=== PATIENT | female | born 1940 | race Caucasian/White ===

== ENCOUNTER → 2017-05-22 | Outpatient (CLI) | payer BC | LOC: FIMAGING 13:58 | PROVIDERS: ATTEND Internal Medicine | DX: Z12.31 Encounter for screening mammogram for malignant neoplasm of breast (principal) | CPT/HCPCS: G0202 ==

== ENCOUNTER → 2017-05-31 | Outpatient (CLI) | payer BC ==
[~2017-05-31] MED LIST: IOPAMIDOL (ISOVUE 370) 100 ML BTL IV ONE
== END ==
LOC: CIMAGING 14:07
PROVIDERS: ATTEND Internal Medicine
DX: R09.02 Hypoxemia (principal); R06.09 Other forms of dyspnea; I51.7 Cardiomegaly; R16.1 Splenomegaly, not elsewhere classified; J90 Pleural effusion, not elsewhere classified; Q79.0 Congenital diaphragmatic hernia
CPT/HCPCS: 71275-PO; Q9967

== ENCOUNTER → 2017-06-13 | Outpatient (CLI) | payer BC | LOC: FIMAGING 14:05 | PROVIDERS: ATTEND Internal Medicine | DX: I50.30 Unspecified diastolic (congestive) heart failure (principal); J90 Pleural effusion, not elsewhere classified; I11.0 Hypertensive heart disease with heart failure ==

== ENCOUNTER → 2017-06-21 | Outpatient (CLI) | payer BC | LOC: FIMAGING 09:33 | PROVIDERS: ATTEND Internal Medicine Cardiovascular Disease | DX: R60.0 Localized edema (principal); R06.02 Shortness of breath; I25.10 Atherosclerotic heart disease of native coronary artery without angina pectoris; E03.9 Hypothyroidism, unspecified; Z79.01 Long term (current) use of anticoagulants ==

== ENCOUNTER 2017-07-31 06:03 | Observation (INO) | payer BC ==
[2017-07-31] MEDS ORDERED: FAMOTIDINE 20 MG TAB PO ONE (06:09)
[2017-07-31] MEDS ORDERED: ASPIRIN EC 325 MG TAB PO ONE (06:09)
[2017-07-31] MEDS ORDERED: DIAZEPAM 5 MG TAB PO ONE (06:09)
[2017-07-31] MEDS ORDERED: NS 1,000 ML IV ONE (06:09)
[2017-07-31] MEDS ORDERED: diphenhydrAMINE 25 MG CAP PO ONE (06:09)
--- NOTE | 2017-07-31 06:34 | CPEKG ---
Heart Rate: 76 RR Interval: 789 QRSD Interval: 132 QT Interval: 404 QTC Interval: 455 QRS [place]: -2 T Wave [place]: 3 EKG Severity - ABNORMAL ECG - EKG Impression: ATRIAL FIBRILLATION, V-RATE 68-84 EKG Impression: RIGHT BUNDLE BRANCH BLOCK EKG Impression: COMPARED WITH 01/21/2014, ATRIAL FIBRILLATION NOW PRESENT Electronically Signed By: Fiona Teague 31-Jul-2017 08:44:52
[2017-07-31 06:58] LABS: % IMMATURE GRANULYOCYTES 0.6 % (0.0-1.1); ABSOLUTE IMMATURE GRANULOCYTES 0.04 10^3/uL (0.00-0.10); ADD DIFF? NO; ADD MORPH? NO; ADD SCAN? NO; ATYPICAL LYMPHOCYTE FLAG 10 (0-99); FRAGMENT RBC FLAG 40 (0-99); HEMATOCRIT 35.1 % (38.0-47.0); HEMOGLOBIN 11.6 g/dL (12.6-16.3); LEFT SHIFT FLG 0 (0-99); LIPEMIA HEMOLYSIS FLAG 80 (0-99); MEAN CELL HEMOGLOBIN 31.2 pg (27.9-34.1); MEAN CELL VOLUME 94.4 fL (81.5-99.8); MEAN PLATELET VOLUME 12.1 fL (8.7-11.7); PLATELET CLUMPS FLAG 0 (0-99); PLATELET COUNT 589 10^3/uL (150-400); RED BLOOD CELL COUNT 3.72 10^6/uL (4.18-5.33)
--- NOTE | 2017-07-31 06:58 | PDHPUP ---
History & Physical Update H&P update statement: This history and physical update is based on an assessment of the patient which was completed after admission or registration (within 24 hours), but prior to the surgery/procedure. H&P update: H&P reviewed & patient examined, no change in patient's condition since H&P completed
--- NOTE | 2017-07-31 06:58 | PDPROPOC ---
Sedation Plan of Care Sedation Plan of Care: vital signs stable, mental status noted, patient educated of risks, benefits, alternatives, patient can tolerate sedation ASA Classification: ASA 2 Planned drugs: fentanyl, midazolam Mallampati Score: Class 2 Mallampati Reference Image: Patient passed 3-3-2 rule?: Yes
[2017-07-31] MEDS ORDERED: LIDOCAINE 1% 300 MG/30 ML SDV ONE (07:02)
[2017-07-31] MEDS ORDERED: fentaNYL 100 MCG/2 ML INJ ONE (07:02)
[2017-07-31] MEDS ORDERED: MIDAZOLAM 2 MG/2 ML VIAL ONE (07:02)
[2017-07-31] MEDS ORDERED: IOPAMIDOL (ISOVUE-370) 150 ML BTL IV ONE (07:03)
[2017-07-31 07:09] LABS: INR 1.26 (0.83-1.16)
[2017-07-31 07:13] LABS: ANION GAP 10 mEq/L (8-16); CALCIUM 9.4 mg/dL (8.5-10.4); CARBON DIOXIDE 32 mEq/l (22-31); CHLORIDE 101 mEq/L (97-110); CHOLESTEROL 78 mg/dL (140-220); CHOLESTEROL/HDL RATIO 2.29 RATIO (1.00-4.44); CREATININE 0.8 mg/dL (0.6-1.0); GLOMERULAR FILTRATION RATE > 60; GLUCOSE 104 mg/dL (70-100); HIGH DENSITY LIPOPROTEIN 34 mg/dL (40-85); LDL/HDL RATIO 0.94 RATIO (1.00-3.22); LOW DENSITY LIPOPROTEIN 32 mg/dL (80-100); MAGNESIUM 1.8 mg/dL (1.6-2.3); NON-HIGH DENSITY LIPOPROTEIN 44 mg/dL (90-129); POTASSIUM 4.5 mEq/L (3.5-5.2); SODIUM 143 mEq/L (134-144); TRIGLYCERIDE 61 mg/dL (35-135); VERY LOW DENSITY LIPOPROTEINS 12 mg/dL (8-25)
[2017-07-31] MEDS ORDERED: CLOPIDOGREL BISULFATE 75 MG TAB ONE (07:45)
[2017-07-31] MEDS ORDERED: HEPARIN 10,000 UNIT/10 ML MDV ONE ×2 (07:49→08:25)
[2017-07-31] MEDS ORDERED: ONDANSETRON 4 MG/2 ML VIAL ONE (08:11)
[2017-07-31] MEDS ORDERED: LORazepam 2 MG/ML INJ IVP PRN (08:20)
[2017-07-31] MEDS ORDERED: ATROPINE SULFATE 1 MG/10 ML SYR IVP PRN (08:20)
[2017-07-31] MEDS ORDERED: OXYCODONE/APAP 5/325 TAB PO PRN (08:20)
[2017-07-31] MEDS ORDERED: TEMAZEPAM 15 MG CAP PO PRN (08:20)
[2017-07-31] MEDS ORDERED: ONDANSETRON 4 MG/2 ML VIAL IVP PRN (08:20)
[2017-07-31] MEDS ORDERED: HYDROCODONE/APAP 5/325 TAB PO PRN (08:20)
--- NOTE | 2017-07-31 08:56 | CPEKG ---
Heart Rate: 72 RR Interval: 833 QRSD Interval: 132 QT Interval: 432 QTC Interval: 473 QRS [place]: -17 T Wave [place]: 0 EKG Severity - ABNORMAL ECG - EKG Impression: ATRIAL FIBRILLATION, V-RATE 63-85 EKG Impression: RIGHT BUNDLE BRANCH BLOCK EKG Impression: NO SIGNIFICANT CHANGE COMPARED WITH 07/31/2017 AT 6:32 A.M. Electronically Signed By: Fiona Teague 31-Jul-2017 17:20:06
--- NOTE | 2017-07-31 09:53 | CPIP ---
[f rep st] INVASIVE CARDIAC PROCEDURE DATE OF PROCEDURE: 07/31/2017 INDICATIONS FOR PROCEDURE: Positive stress test. Shortness of breath. PROCEDURE: 1. Nonselective right groin sheathogram. 2. Seven-Maldivian sheath right common femoral vein. 3. [place] catheter placement. 4. Bilateral selective coronary angiography. 5. Left heart catheterization. 6. Left ventriculogram. 7. Percutaneous coronary intervention of mid right posterior descending artery utilizing Synergy 2.5 x 20 mm drug-eluting stent. HISTORY: Briefly, this is a 77-year-old female with history of coronary artery disease, worsening sh ortness of breath who is now on oxygen therapy. The patient also had a positive stress test as an ou tpatient. Given these findings, patient consented for right and left heart catheterization. After informed consent, patient brought to [facility] where the right groin was prepped and draped in sterile fashion. Using local lidocaine, a short 6-Maldivian sheath was placed in the rig ht common femoral artery. A 7-Maldivian sheath placed in the right common femoral vein. Through the 7- Maldivian sheath, a right heart catheter was advanced. RA pressure was measured to be 14/16, RV pressur e 55/6 with the end of 13. PA pressure was 63/30 with a mean of 50. Wedge pressure was 24 with a V- wave of 32. The cardiac output was measured to be 4.3 by Nathaniel with a cardiac index of 2.25. AO sat was 93%. PA sat was 68%. [place] catheter was then removed and a JL4 catheter was then advanced t o the right coronary artery. Images of the right coronary artery revealed normal left main. Normal left circumflex artery giving off a marginal 1 artery and terminating into an AV groove circ. There was a ramus intermedius which was healthy and free of disease. The LAD was a long vessel which wrapp ed around the apex. The LAD gave off a small to medium diagonal artery which was healthy and free of disease. After these images were obtained, the JL4 catheter was removed. A JR4 catheter was advanc ed in the right coronary artery. Images of the right coronary artery revealed normal os prox mid RCA . The RPDA was healthy and free of disease. The RPLS was extensively stented from its mid portion t o the distal aspect. In the stented region there has 2 focal areas of high-grade in-stent restenosis . After these images had been obtained, the JR4 catheter was removed. The pigtail catheter was adva nced to the left ventricle. LVEDP is 15 mmHg. Left ventriculogram obtained in the SALAZAR projection sh owed an EF of 55% with no wall motion abnormalities. There was no pull-back gradient between the LV and aorta. Pigtail catheter was removed over 0.035 wire. INTERVENTIONAL REPORT: At this time, the patient was given 600 of Plavix p.o. and given 7000 heparin IV. A JR4 catheter was advanced to the right coronary artery. A Choice PT wire was placed down the RPLS. Predilatation commenced with a 2.0 x 15 mm compliant balloon at 14 atmospheres. After perfor med, angiographic exam showed improved patency of the stented area. We decided to proceed with stent ing of this vessel with a Synergy 2.5 x 20 mm stent. This was deployed successfully at 16 atmosphere s. After deployment, angiographic exam showed excellent patency of the stented regions with no evide nce of dissection or perforation with ELVIS-3 flow through the vessel. The wire was removed. The nell de catheter were removed over a 0.035 wire. The right groin was sutured in place. Patient tolerated procedure well with no complications. IMPRESSION: 1. Successful percutaneous coronary intervention of high-grade in-stent restenosis of the RPLS with Synergy 2.5 x 20 mm drug-eluting stent. 2. Widely patent left coronary artery circulation. 3. Normal ejection fraction. 4. Moderately severe pulmonary hypertension. PLAN: The patient will have her sheath discontinued when the AC is less than 180. She will be admit yaa overnight. If clinically stable, will be discharged within 24 hours. /[id number]/MODL
[2017-07-31] MEDS: CLOPIDOGREL BISULFATE 75 MG TAB PO SCH (13:21)
[2017-07-31] MEDS: ATORVASTATIN CALCIUM 20 MG TAB PO SCH (15:06)
[2017-07-31] MEDS: APIXABAN 5 MG TAB PO SCH ×2 (15:07→20:16)
[2017-07-31] MEDS: METOPROLOL TARTRATE 50 MG TAB PO SCH ×2 (15:07→20:16)
[2017-07-31] MEDS: RAMIPRIL 5 MG CAP PO SCH (15:07)
[2017-07-31] MEDS: NITROGLYCERIN 0.4 MG BTL SL PRN ×2 (16:12→16:25)
--- NOTE | 2017-07-31 16:48 | CPEKG ---
Heart Rate: 78 RR Interval: 769 QRSD Interval: 124 QT Interval: 404 QTC Interval: 461 QRS [place]: -41 T Wave [place]: -20 EKG Severity - ABNORMAL ECG - EKG Impression: ATRIAL FIBRILLATION EKG Impression: RIGHT BUNDLE BRANCH BLOCK EKG Impression: COMPARED WITH 07/31/2017 AT 8:54 A.M., NO SIGNIFICANT CHANGE Electronically Signed By: Fiona Teague 31-Jul-2017 17:19:39
--- NOTE | 2017-07-31 17:30 | PDCARPN ---
Cardiology Progress Note Chief Complaint: chest tightness Assessment/Plan: Assessment: 1. Episode of chest pain post PCI to post lateral branch of RCA today -No wall motion changes or pericardial effusion on stat echo -pt is now pain free -No indication to return to laboratory assistant 2. AFib Plan: -continue current medications -ECG in AM -Pt instructed to notify nurse with new onset of pain 07/31/17 17:34 Subjective: Avani is a pleasant 77 year old female who was admitted electively this am for LHC after an abnormal stress test with a known hx of CAD with PCI to the Posterior Lateral branch off of dominant RCA. LHC demonstrated widely patent Left coronary arteries with no evidence of cad per my review. Pt had significant narrowing of distal posterior lateral branch and underwent successful PCI with 2.5 x 20 mm MERLINE. Tolerated the procedure well. I was asked to see her at approx 16:45 secondary to chest tightness. Pt states that pain began this afternoon shortly after eating. This was approximately 15: 00. She described 8/10 chest tightness. She did have some mild nausea. No other symptoms. She did not have any relief wth 2 NTG. ECG demonstrated sinus with RBBB. There is TWI in III and AVF. There was TWI in III pre op, new TWI in III. Post ECG her pain was down to 4/10. Stat echo was done with no evidence of wall motion abnormality or effusion. By the time the echo was completed she was pain free. Vital signs are stable with BP of 110/75 and HR 88. 96% on 2L Groin site is stable without hematoma or ecchymosis. She remains pain free and appears comfortable at the time of this note. Reviewed/Discussed With: family, multidisciplinary team Objective: Vital Signs (8 Hrs) Temp Pulse Resp BP Pulse Ox 07/31/17 16:24 85 110/75 07/31/17 15:10 36.4 C 07/31/17 15:09 79 20 122/78 H 96 07/31/17 14:20 63 20 103/55 L 95 07/31/17 13:40 36.3 C 63 16 118/79 96 07/31/17 13:06 109/45 L 99 07/31/17 13:05 99 07/31/17 13:03 117/55 L 100 07/31/17 13:01 112/50 L 97 12/18/17 13:00 98 17 12:58 114/57 L 94 07/31/17 12:56 97/73 L 98 17 12:55 99 17 12:53 113/71 99 17 12:51 103/57 L 98 17 12:50 96 17 12:48 106/50 L 95 17 12:46 100/46 L 97 17 12:45 99 17 12:43 104/52 L 98 17 12:41 101/68 100 17 12:40 97 17 12:39 102/69 97 07/31/17 12:36 113/57 L 98 07/31/17 12:35 98 07/31/17 12:34 105/57 L 99 07/31/17 12:31 110/53 L 98 07/31/17 12:30 92 07/31/17 12:29 106/58 L 95 07/31/17 12:26 123/51 H 97 17 12:25 99 17 12:23 106/54 L 100 07/31/17 12:21 96/55 L 95 07/31/17 12:20 98 17 12:19 104/64 98 07/31/17 12:16 111/66 96 17 12:15 96 07/31/17 12:14 118/63 97 07/31/17 12:11 116/58 L 99 17 12:10 100 17 12:09 98/48 L 94 17 12:06 115/68 96 07/31/17 12:05 88 L 17 12:03 111/71 97 18/17 12:01 112/66 97 18/17 12:00 98 18/17 11:59 128/59 H 98 18/17 11:56 114/79 99 18/17 11:55 98 18/17 11:53 117/68 100 18/17 11:50 98 18/17 11:47 123/65 H 99 18/17 11:45 99 12/18/17 11:40 97 12/18/17 11:35 89 L Intake/Output (24 Hrs) 07/30/17 07/31/17 08/01/17 05:59 05:59 05:59 Other: Weight 95.254 kg Result Diagrams: 07/31/17 06:30 07/31/17 06:30 - Physical Exam Constitutional: WDWN, healthy appearing, no apparent distress, obese Ears, Nose, Mouth, Throat: moist mucous membranes Cardiovascular: no murmurs, no rubs, no gallops, irregularly irregular Peripheral Pulses: 1+: dorsalis-pedis (R), dorsalis-pedis (L) Respiratory: other (mild exp wheeze at upper lung hutchins ) Gastrointestinal: normoactive bowel sounds Skin: no rashes Musculoskeletal: no muscular tenderness Neurologic: AAOx3, CN II-XII grossly intact Psychiatric: cooperative, interactive, following commands ICD10 Worksheet Patient Problems: Problems Problem Status Onset Arthritis of knee Active Appendicitis Acute
[2017-07-31] MEDS ORDERED: ACETAMINOPHEN 325 MG TAB PO PRN (17:59)
[2017-08-01 04:59] LABS: % IMMATURE GRANULYOCYTES 0.8 % (0.0-1.1); ABSOLUTE IMMATURE GRANULOCYTES 0.07 10^3/uL (0.00-0.10); ADD DIFF? NO; ADD MORPH? NO; ADD SCAN? NO; ATYPICAL LYMPHOCYTE FLAG 10 (0-99); FRAGMENT RBC FLAG 30 (0-99); HEMATOCRIT 31.7 % (38.0-47.0); HEMOGLOBIN 10.3 g/dL (12.6-16.3); LEFT SHIFT FLG 0 (0-99); LIPEMIA HEMOLYSIS FLAG 80 (0-99); MEAN CELL HEMOGLOBIN 31.4 pg (27.9-34.1); MEAN CELL HEMOGLOBIN CONCENTR. 32.5 g/dL (32.4-36.7); MEAN CELL VOLUME 96.6 fL (81.5-99.8); MEAN PLATELET VOLUME 12.5 fL (8.7-11.7); PLATELET CLUMPS FLAG 0 (0-99); PLATELET COUNT 491 10^3/uL (150-400); RED BLOOD CELL COUNT 3.28 10^6/uL (4.18-5.33)
[2017-08-01 08:10] VITALS: RESP 18
[2017-08-01 08:27] LABS: ANION GAP 10 mEq/L (8-16); CALCIUM 8.9 mg/dL (8.5-10.4); CARBON DIOXIDE 24 mEq/l (22-31); CHLORIDE 106 mEq/L (97-110); CREATININE 0.8 mg/dL (0.6-1.0); GLOMERULAR FILTRATION RATE > 60; GLUCOSE 88 mg/dL (70-100); SODIUM 140 mEq/L (134-144)
[2017-08-01] MEDS: CLOPIDOGREL BISULFATE 75 MG TAB PO SCH (08:31)
[2017-08-01] MEDS: APIXABAN 5 MG TAB PO SCH (08:31)
[2017-08-01] MEDS: ATORVASTATIN CALCIUM 20 MG TAB PO SCH (08:31)
[2017-08-01] MEDS: METOPROLOL TARTRATE 50 MG TAB PO SCH (08:31)
[2017-08-01] MEDS: RAMIPRIL 5 MG CAP PO SCH (08:31)
--- NOTE | 2017-08-01 10:03 | ECHO ---
[email or web address] [address] Main: [phone] Fax: Transthoracic Echocardiogram Name: KWABENA PEREZ MR#: [id number] Study Date: 07/31/2017 Study Time: 05:02 PM Date of : 1940 Age: 77 year(s) Height: 154.9 cm (61 in.) Weight: 95.26 kg (210 lb.) BSA: 1.93 m2 Gender: Female Examination: Limited Echo Indication: Limited echocardiogram to evaluate LV function; CP; s/p stent Image Quality: Adequate Contrast: Requested by: Curtis Pascual BP: 110 mmHg/76 mmHg Heart Rate: Rhythm: Indication: Limited echocardiogram to evaluate LV function; CP; s/p stent Procedure Staff Spray Painter: Edel He Reading Physician: Simon Saldana Requesting Provider: Conclusions: Normal size left ventricle. Normal global systolic LV function. EF is 59 %. No regional wall motion abnormality. Mildly dilated right ventricle. Mildly reduced RV function. Flattened interventricular septum consistent with right ventricular pressure and/or volume overload free wall. The right atrium is mildly to moderately dilated. Estimated RVSP 50-55%. No pericardial effusion. Measurements: Chambers Valvular Assessment AV/MV Valvular Assessment TV/PV Normal Normal Normal Name Value Range Name Value Range Name Value Range LVEF (BP): 59 % (>=55 %) Continued Measurements: Findings: Left Ventricle: Normal size left ventricle. Normal global systolic LV function. EF is 59 %. No regional wall motion abnormality. Right Ventricle: Mildly dilated right ventricle. Mildly reduced RV function. Flattened interventricular septum consistent with right ventricular pressure and/or volume overload free wall. Right Atrium: Patient: KWABENA PEREZ Study Date: 07/31/2017 Page 1 of 2 05:02 PM The right atrium is mildly to moderately dilated. Mitral Valve: The mitral valve is normal in appearance. Mild mitral annular calcification. Tricuspid Valve: The tricuspid valve is normal in appearance and function. The pulmonary artery pressure is moderately increased. Estimated RVSP 50-55%. Pericardium: No pericardial effusion. (No Signature Object) Patient: KWABENA PEREZ Study Date: 07/31/2017 Page 2 of 2 05:02 PM [id number]
--- NOTE | 2017-08-01 10:40 | PDCARPN ---
Cardiology Progress Note Chief Complaint: chest pain Assessment/Plan: Assessment: 1. CAD: PCI to posterior lateral branch of RCA wiht 2.5 x 20 mm MERLINE yesterday. 2. Episode of chest pain post PCI to post lateral branch of RCA -No wall motion changes or pericardial effusion on stat echo -pt is now pain free -feeling well this am 3. AFib -rate control with metoprolol tartrate 50 mg bid -anticoagulation with Eliquis 5 mg bid Plan: -discharge on plavix 75 mg daily -Eliquis 5 mg bid -no aspirin in the setting of plavix and eliquis -continue atorvastatin 20 mg daily -continue metoprolol tartratre 50 mg bid -continue ramapril 5 mg daily -continue lasix 20 mg daily -pt has been seen by Cardiac Rehab -Follow up next week at [facility] -Post cath instructions reviewed in detail -30 min spent coordinating discharge Subjective: Mrs. Garza is a pleasant 77 year old female who underwent PCI to posterior lateral branch of RCA yesterday with 2.5 x 20 mm MERLINE. Tolerated procedure well. Post op she developed chest pain at approx 15:00. ECG showed new TWI in AVF with NSR and underlying RBBB. Echo demonstrated normal wall motion and no pericardial effusion. Her symptoms had resolved by the completion of her echo. This morning she is feeling well. No cardiac complaints. No new episodes of chest pain. She is hemodynamically stable. No events on telemetry. Groin site is stable without hematoma or ecchymosis. Time Spent With Patient: 30 min Objective: Vital Signs (8 Hrs) Temp Pulse Resp BP Pulse Ox 08/01/17 08:00 36.5 C 86 18 110/76 96 08/01/17 04:00 36.8 C 72 16 117/56 L 96 Intake/Output (24 Hrs) 07/31/17 08/01/17 08/02/17 05:59 05:59 05:59 Intake Total 800 450 Balance 800 450 Intake: Oral (ml) 800 450 IV Intake (ml) 0 Other: Weight 95.254 kg Number of Voids Toilet 2 Result Diagrams: 08/01/17 04:28 08/01/17 04:28 ICD10 Worksheet Patient Problems: Problems Problem Status Onset Arthritis of knee Active Appendicitis Acute
--- NOTE | 2017-08-01 10:54 | CPEKG ---
Heart Rate: 81 RR Interval: 741 QRSD Interval: 122 QT Interval: 396 QTC Interval: 460 QRS [place]: -20 T Wave [place]: -11 EKG Severity - ABNORMAL ECG - EKG Impression: ATRIAL FIBRILLATION, V-RATE 72-92 EKG Impression: RIGHT BUNDLE BRANCH BLOCK EKG Impression: COMPARED WITH 07/31/2017 AT 4:45 P.M., NO SIGNIFICANT CHANGE Electronically Signed By: Fiona Teague 01-Aug-2017 18:48:18
[2017-08-01 11:21] VITALS: BP 101/71; PULSE 81; TEMP 97.9; O2SAT 95
--- NOTE | 2017-08-01 11:34 | GDS ---
[f rep st] DISCHARGE SUMMARY INDICATION FOR ADMISSION: The patient was admitted electively for diagnostic left heart catheterization with possible intervention in the setting of known history of coronary artery disease with history of abnormal treadmill stress test. The patient underwent diagnostic left and right heart catheterization with Dr. Curtis Pascual on July 31, 2017. She tolerated the procedure well. Right heart catheterization demonstrated right atrial pressure of 14, right ventricular pressure 55/6 with an end systolic pressure of 13, PA pressure was 63/30 with a mean of 50 and wedge pressure of 24. Cardiac output by Nathaniel was 4.3, and cardiac index of 2.25. Diagnostic left heart catheterization demonstrated widely patent left coronary artery circulation. There was high- grade stenosis, in-stent stenosis in the right posterolateral branch of the right coronary artery. She underwent successful PCI with a 2.5 x 20 mm synergy drug-eluting stent. Several hours postoperatively she developed 8/10 substernal chest tightness. Workup demonstrated an isolated new T-wave inversion in lead aVF. Stat limited echocardiogram demonstrated normal wall motion with no evidence of inferior wall or inferolateral wall hypokinesis. By the completion of the echocardiogram her symptoms had resolved completely. She has had no further episodes of chest discomfort, she is feeling well this morning and is stable for discharge home. In the setting of a history of atrial fibrillation on chronic anticoagulation with Eliquis, she will be discharged home on Eliquis and Plavix only with no additional aspirin. MEDICATIONS AT TIME OF DISCHARGE: 1. Eliquis 5 mg p.o. b.i.d. 2. Plavix 75 mg once daily. Of note, she has been given a prescription for 90 day supply with 3 refills for this medication. 3. Metoprolol tartrate 50 mg p.o. b.i.d. 4. Ramipril 5 mg once daily. 5. Lasix 20 mg once daily. 6. Atorvastatin 20 mg daily. 7. Synthroid 50 mcg daily. PHYSICAL EXAM AT TIME OF DISCHARGE: GENERAL: The patient is awake, alert, oriented appropriate in no apparent distress. VITAL SIGNS: Blood pressure is 110/76, heart rate is 86, respiratory rate of 18, oxygen saturation 96% on 2 L nasal cannula, temperature 36.5. NECK: There is no evidence of JVP or carotid bruits. LUNGS: Clear to auscultation bilaterally. CARDIAC: S1, S2. Regular. No murmurs, rubs, or gallops. LABORATORY DATA AT TIME OF DISCHARGE: White blood cell count of 8.29, hemoglobin of 10.3, hematocrit 31.7, platelet count 491. Sodium 140, potassium 5.0, chloride 106, bicarb 24, BUN 14, creatinine 0.8, glucose 88. Lipid profile at time of discharge, includes total cholesterol of 78, calculated LDL of 32, HDL 34 and triglycerides of 61. PLAN AT TIME OF DISCHARGE: 1. Patient will be discharged home on above medications. She will be given a new prescription for Plavix 75 mg once daily. 2. She has been seen by cardiac rehab in the hospital this morning. We will plan to initiate cardiac rehab as an outpatient. 3. She is scheduled to see Dr. Pascual on August 15, 2017 at 1:45 p.m. 30 Min spent coordinating care /[id number]/MODL MTDD
--- NOTE | 2017-08-01 12:43 | ASDISCHSUM ---
Discharge Information Plan Status:Home with No Needs Medically Cleared to Leave:07/31/2017 Discharge Date:08/01/2017 11:50 AM CM D/C Disposition:Home, Routine, Self-Care ADT D/C Disposition:Home, Routine, Self-Care Projected Discharge Date:08/01/2017 11:50 AM Transportation at D/C:Family Discharge Delay Reason: Follow-Up Date:08/01/2017 11:50 AM Discharge Slot: Final Diagnosis: Placement Information Patient Contact Information Contact Name:MELVA Relationship: Address:[address] [place] [address] [address] [place] [place] Alternate Phone: [facility]/Zip Code:[place] [address] Email: Financial Information Financial Class:HMO and PPO Plans Primary Plan Desc:[employer] Primary Plan Number:[id number] Secondary Plan Desc: Secondary Plan Number: Assessment Information Case Management Discharge Plan Note Case Management Discharge Discharge Order Complete? Answers: Yes Discharge Comments Notes: Pt evaluated by cardiac rehab Date Signed: 08/01/2017 12:43 PM Electronically Signed By:Jessie Mendoza RN Intervention Information
== END 2017-08-01 11:50 | disposition home or self-care (01) ==
LOC: FCATH 06:03 → F2W 08:20
PROVIDERS: ADMIT Internal Medicine Cardiovascular Disease; ATTEND Internal Medicine Cardiovascular Disease
PROC: B2151ZZ Fluoroscopy of Left Heart using Low Osmolar Contrast (ICD-10-PCS; principal; 2017-07-31)
PROC: 027034Z Dilation of Coronary Artery, One Artery with Drug-eluting Intraluminal Device, Percutaneous Approach (ICD-10-PCS; principal; 2017-07-31)
PROC: B2111ZZ Fluoroscopy of Multiple Coronary Arteries using Low Osmolar Contrast (ICD-10-PCS; principal; 2017-07-31)
PROC: 4A023N8 Measurement of Cardiac Sampling and Pressure, Bilateral, Percutaneous Approach (ICD-10-PCS; principal; 2017-07-31)
DX: I48.91 Unspecified atrial fibrillation (principal); R06.00 Dyspnea, unspecified; I10 Essential (primary) hypertension
CPT/HCPCS: 92928; 93005; 93308; 93460; C1725; C1769; C1887; G0378; C1874; C9600; J1644; J2250; J2405; J3010; Q9967

== ENCOUNTER 2017-08-22 19:18 | Inpatient (IN) | payer OTHER, BC ==
[2017-08-22] MEDS ORDERED: ASPIRIN 81 MG CHEWABLE TAB PO ONE (19:36)
--- NOTE | 2017-08-22 19:47 | CPEKG ---
Heart Rate: 79 RR Interval: 759 QRSD Interval: 134 QT Interval: 424 QTC Interval: 487 QRS [place]: 4 T Wave [place]: 3 EKG Severity - ABNORMAL ECG - EKG Impression: ATRIAL FIBRILLATION, V-RATE 55-88 EKG Impression: RIGHT BUNDLE BRANCH BLOCK Electronically Signed By: Gume Hogan 23-Aug-2017 10:44:44
[2017-08-22 19:52] LABS: PLATELET COUNT 559 10^3/uL (150-400)
[2017-08-22 20:02] LABS: INR 1.4 (0.83-1.16); PROTIME(PATIENT) 16.9 SEC (12.0-15.0)
--- NOTE | 2017-08-22 21:28 | EDPHY ---
H & P Stated Complaint: c/o Rt groin cath site and knee pain on and off since 07/31 Time Seen by Provider: 08/22/17 19:35 HPI/ROS: This patient reports right thigh pain at the site of her femoral catheterization for cardiac stent that was performed on July 31. She reports that she had pain at the site for 2-3 days afterwards and then improved until the past 2 days developed similar feeling pain described as achy at baseline sharp with walking to the right thigh. This is associated with lower extremity swelling in the leg and at the site of pain in her groin. Her recent travel history includes a plane flight floor -4 hr of travel 4 days prior to arrival and then she return on a 4 hr flight today. The pain is moderate baseline and severe with walking. She had Tylenol 1 g shortly prior to arrival with mild improvement and notes no other exacerbating factors. She was driven here by private vehicle by her for evaluation of the symptoms. ROS: Constitutional: No fevers or chills. She reports mild baseline fatigue that she attributes to obesity. HEENT: No URI symptoms or other complaints Pulmonary: No recent shortness of breath. No cough. Cardiovascular: She reports no lightheadedness. Swelling and right lower extremity as per HPI. Musculoskeletal: She complains of right knee pain as well moderate intensity GI: Mild nausea attributes to pain in her leg. No abdominal pain. No vomiting : No complaints Integumentary: No complaints except for ecchymosis to the right lower extremity Endocrine: No complaints Complete review of symptoms is otherwise negative. Source: Patient Exam Limitations: No limitations - Personal History Current Tetanus Diphtheria and Acellular Pertussis (TDAP): No Tetanus Vaccine Date: WITHIN 10 YRS - Medical/Surgical History Hx Asthma: No Hx Chronic Respiratory Disease: No Hx Diabetes: No Hx Cardiac Disease: Yes Hx Renal Disease: No Hx Cirrhosis: No Hx Alcoholism: No Hx HIV/AIDS: No Hx Splenectomy or Spleen Trauma: No Other PMH: Hypertension, Gallbladder removed, hypothyroidism, hyperlipidemia, CAD with. 3 stents in heart, [place] 2002, spinal stenosis - Family History Significant Family History: No pertinent family hx - Social History Smoking Status: Never smoked Alcohol Use: None Drug Use: None Additional Social History: See travel history as per HPI. - Physical Exam Exam: General Appearance: Alert, no distress. Eyes: Pupils equal and round no pallor or injection. ENT, Mouth: Mucous membranes moist. Respiratory: There are no retractions, lungs are clear to auscultation. Cardiovascular: Regular rate and rhythm. No murmur gallop or rub. Gastrointestinal: Abdomen is soft and nontender, no masses, bowel sounds normal. Neurological: [ ] Skin: Warm and dry, no rashes. Musculoskeletal: Neck is supple nontender. Extremities are symmetrical, full range of motion. Psychiatric: Patient is oriented X 3, there is no agitation. DIFFERENTIAL DIAGNOSIS: After history and physical exam differential diagnosis was considered for [ ] Constitutional: Initial Vital Signs Temperature (C) 36.6 C 08/22/17 19:31 Heart Rate 110 H 08/22/17 19:31 Respiratory Rate 18 08/22/17 19:31 Blood Pressure 119/80 08/22/17 19:31 O2 Sat (%) 95 08/22/17 19:31 O2 Delivery Mode Room Air Allergies/Adverse Reactions: No Allergies [NKA] Allergy (Verified 10/30/13 12:12) Home Medications: Medication Instructions Recorded Atorvastatin Calcium [Lipitor 20 20 mg PO DAILY 11/08/12 mg (*)] Herbals/Supplements -Info Only 1 each PO AD 11/08/12 Metoprolol Tartrate [Lopressor 50 50 mg PO BID 11/08/12 mg (*)] Ramipril [Altace 5mg (*)] 10 mg PO DAILY 11/08/12 Apixaban [Eliquis] 5 mg PO BID 07/31/17 Furosemide 20 mg PO DAILY 07/31/17 Levothyroxine [Synthroid 50 mcg 50 mcg PO DAILY06 07/31/17 (*)] Clopidogrel Bisulfate [Plavix (*)] 75 mg PO DAILY 90 Days tab 08/01/17 Medical Decision Making - Diagnostics Imaging Results: Imaging Impressions Extremity Venous Study 08/22/17 19:52 Impression: 1. Right groin hematoma versus near total thrombosis of pseudoaneurysm. Flash of blood flow along the posterolateral margin may represent a tiny feeding neck , with atypical blood flow versus merely a collateral vessel emanating off the deep femoral artery. Recommend follow-up right groin ultrasound in 1 to 2 days. 2. No deep venous thrombosis or Garcia's cyst. Findings discussed with Emergency Department physician, Andrade Gan M.D., on August 22, 2017 at 2125. Doppler ultrasound right lower extremity reveals Hematoma 5 x 6 cm or so surrounding the right femoral vessels with a single jet appearance in to the hematoma without the classic yin/wiggins sign of a pseudoaneurysm but concerning for possible pseudoaneurysm with evidence of ongoing mild bleeding. I spoke with Dr. Luis regarding this result. Imaging: Discussed imaging studies w/ crew caller Radiologist ED Course/Re-evaluation: Patient was initially given aspirin with concern of potential right lower extremity DVT. After the results of the ultrasound pop, our nurse held pressure on the right groin for 10 min. Doppler ultrasound results as per study above. I spoke with Dr. Fiona Teague, lance crewmember on-call for Dr. Pascual who recommends admission with plan to hold Eliquis and treat her with 1 baby aspirin a day and to continue her current Plavix 75 mg a day. She will be on bed rest with plan for repeat imaging studies tomorrow. [facility] with tele at [facility] Discussion: Patient with evidence of bleeding from right femoral artery status post catheterization and stent represent Jony from increase activity due to travel along with blood thinners. Patient appears to have pseudoaneurysm versus hematoma with near complete thrombus at the site. Plan to admit her for bed rest and to have post- cath groin care with plan for repeat imaging tomorrow. - Data Points Laboratory Results: Laboratory Results 08/22/17 19:45 08/22/17 19:45 08/22/17 08/22/17 08/22/17 19:45 19:45 19:45 WBC 8.33 10^3/uL 10^3/uL (3.80-9.50) RBC 3.53 10^6/uL L 10^6/uL (4.18-5.33) Hgb 10.7 g/dL L g/dL (12.6-16.3) Hct 33.7 % L % (38.0-47.0) MCV 95.5 fL fL (81.5-99.8) MCH 30.3 pg pg (27.9-34.1) MCHC 31.8 g/dL L g/dL (32.4-36.7) RDW 16.3 % H % (11.5-15.2) Plt Count 559 10^3/uL H 10^3/uL (150-400) MPV 12.3 fL H fL (8.7-11.7) Neut % (Auto) 56.1 % % (39.3-74.2) Lymph % (Auto) 27.5 % % (15.0-45.0) [place] % (Auto) 9.1 % % (4.5-13.0) Eos % (Auto) 5.0 % % (0.6-7.6) Baso % (Auto) 1.8 % H % (0.3-1.7) Nucleat RBC Rel Count 0.0 % % (0.0-0.2) Absolute Neuts (auto) 4.67 10^3/uL 10^3/uL (1.70-6.50) Absolute Lymphs (auto) 2.29 10^3/uL 10^3/uL (1.00-3.00) Absolute Monos (auto) 0.76 10^3/uL 10^3/uL (0.30-0.80) Absolute Eos (auto) 0.42 10^3/uL H 10^3/uL (0.03-0.40) Absolute Basos (auto) 0.15 10^3/uL H 10^3/uL (0.02-0.10) Absolute Nucleated RBC 0.00 10^3/uL 10^3/uL (0-0.01) Immature Gran % 0.5 % % (0.0-1.1) Immature Gran # 0.04 10^3/uL 10^3/uL (0.00-0.10) PT 16.9 SEC H SEC (12.0-15.0) INR 1.40 H (0.83-1.16) APTT 42.4 SEC H SEC (23.0-38.0) D-Dimer 0.49 ug/mLFEU ug/mLFEU (0.00-0.50) Sodium 141 mEq/L mEq/L (135-145) Potassium 4.5 mEq/L mEq/L (3.5-5.2) Chloride 98 mEq/L mEq/L (97-110) Carbon Dioxide 28 mEq/l mEq/l (22-31) Anion Gap 15 mEq/L mEq/L (8-16) BUN 15 mg/dL mg/dL (7-23) Creatinine 0.8 mg/dL mg/dL (0.6-1.0) Estimated GFR > 60 Glucose 100 mg/dL mg/dL (70-100) Calcium 9.0 mg/dL mg/dL (8.5-10.4) Troponin I 0.017 ng/mL ng/mL (0.000-0.034) Medications Given: Discontinued Medications Aspirin (Aspirin) 324 mg PO EDNOW ONE Stop: 08/22/17 19:37 Last Admin: 08/22/17 19:57 Dose: Not Given Morphine Sulfate (Morphine) 4 mg IVP EDNOW ONE Stop: 08/22/17 21:51 Last Admin: 08/22/17 22:16 Dose: 4 mg Departure - Departure Disposition: [facility] Inpatient Acute Clinical Impression: Pseudoaneurysm of right femoral artery Groin hematoma Qualifiers: Encounter type: initial encounter Qualified Code(s): S30.1XXA - Contusion of abdominal wall, initial encounter Condition: Fair
[2017-08-22] MEDS ORDERED: ONDANSETRON 4 MG/2 ML VIAL IVP PRN (22:23)
[2017-08-22] MEDS ORDERED: ACETAMINOPHEN 325 MG TAB PO PRN (22:23)
[2017-08-22] MEDS ORDERED: ONDANSETRON DISINTEGRATING 4 MG TAB PO PRN (22:23)
[2017-08-23] MEDS ORDERED: oxyCODONE IR 5 MG TAB PO PRN (00:44)
--- NOTE | 2017-08-23 02:18 | PDGENHP ---
History and Physical - Chief Complaint Groin pain - History of Present Illness 77 yo F w/ hx of CAD, AF, HTN, and hypothyroid presents with R groin pain. Patient had a cardiac cath in July. She had pain for a couple of days but then her symptoms resolved. Then, over the last 2 days, she again developed R groin pain.She denies any numbness or weakness in her R leg. She presented to the ED where an ultrasound revealed R groin hematoma vs. thrombosed pseudoaneurysm. She was admitted for further care in stable condition. History Information - Allergies/Home Medication List Allergies/Adverse Reactions: No Allergies [NKA] Allergy (Verified 10/30/13 12:12) Home Medications: Atorvastatin Calcium [Lipitor 20 mg (*)] 20 mg PO DAILY 11/08/12 [Last Taken ] Herbals/Supplements -Info Only 1 each PO AD 11/08/12 [Last Taken 11/13/12 20:00 1 po] Metoprolol Tartrate [Lopressor 50 mg (*)] 50 mg PO BID 11/08/12 [Last Taken 09:00] Ramipril [Altace 5mg (*)] 10 mg PO DAILY 11/08/12 [Last Taken 10/30/13] Apixaban [Eliquis] 5 mg PO BID 07/31/17 [Last Taken 07/28/17 20:00] Furosemide 20 mg PO DAILY 07/31/17 [Last Taken 07/30/17 09:00] Levothyroxine [Synthroid 50 mcg (*)] 50 mcg PO DAILY06 07/31/17 [Last Taken 06:00] I have personally reviewed and updated: family history, medical history - Past Medical History atrial fibrillation, coronary artery disease, hypertension - Family History Positive for: cancer - Social History Smoking Status: Never smoked Alcohol Use: None Drug Use: None Review of Systems Review of Systems: ROS: 10pt was reviewed & negative except for what was stated in HPI & below Physical Exam Physical Exam: Temp Pulse Resp BP Pulse Ox 36.6 C 86 16 125/66 H 96 08/22/17 23:53 08/22/17 23:53 08/22/17 23:53 08/22/17 23:53 08/22/17 23:53 O2 (L/minute) 2 Constitutional: no apparent distress, not in pain Eyes: PERRL, EOMI Ears, Nose, Mouth, Throat: moist mucous membranes, no oral mucosal ulcers Cardiovascular: regular rate and rhythym, no murmur, rub, or gallop, pulses symmetric bilaterally, other (RLE DP and PT pulses easily palpable) Respiratory: no respiratory distress, clear to auscultation Gastrointestinal: normoactive bowel sounds, soft, non-tender abdomen Skin: warm, normal color Musculoskeletal: full muscle strength, other (TTP overlying R groin) Neurologic: AAOx3, CN II-XII Intact Psychiatric: interacting appropriately, not anxious Lab Data & Imaging Review 08/22/17 19:45 08/22/17 19:45 WBC 8.33 10^3/uL (3.80-9.50) 08/22/17 19:45 RBC 3.53 10^6/uL (4.18-5.33) L 08/22/17 19:45 Hgb 10.7 g/dL (12.6-16.3) L 08/22/17 19:45 Hct 33.7 % (38.0-47.0) L 08/22/17 19:45 MCV 95.5 fL (81.5-99.8) 08/22/17 19:45 MCH 30.3 pg (27.9-34.1) 08/22/17 19:45 MCHC 31.8 g/dL (32.4-36.7) L 08/22/17 19:45 RDW 16.3 % (11.5-15.2) H 08/22/17 19:45 Plt Count 559 10^3/uL (150-400) H 08/22/17 19:45 MPV 12.3 fL (8.7-11.7) H 08/22/17 19:45 Neut % (Auto) 56.1 % (39.3-74.2) 08/22/17 19:45 Lymph % (Auto) 27.5 % (15.0-45.0) 08/22/17 19:45 [place] % (Auto) 9.1 % (4.5-13.0) 08/22/17 19:45 Eos % (Auto) 5.0 % (0.6-7.6) 08/22/17 19:45 Baso % (Auto) 1.8 % (0.3-1.7) H 08/22/17 19:45 Nucleat RBC Rel Count 0.0 % (0.0-0.2) 08/22/17 19:45 Absolute Neuts (auto) 4.67 10^3/uL (1.70-6.50) 08/22/17 19:45 Absolute Lymphs (auto) 2.29 10^3/uL (1.00-3.00) 08/22/17 19:45 Absolute Monos (auto) 0.76 10^3/uL (0.30-0.80) 08/22/17 19:45 Absolute Eos (auto) 0.42 10^3/uL (0.03-0.40) H 08/22/17 19:45 Absolute Basos (auto) 0.15 10^3/uL (0.02-0.10) H 08/22/17 19:45 Absolute Nucleated RBC 0.00 10^3/uL (0-0.01) 08/22/17 19:45 Immature Gran % 0.5 % (0.0-1.1) 08/22/17 19:45 Immature Gran # 0.04 10^3/uL (0.00-0.10) 08/22/17 19:45 PT 16.9 SEC (12.0-15.0) H 08/22/17 19:45 INR 1.40 (0.83-1.16) H 08/22/17 19:45 APTT 42.4 SEC (23.0-38.0) H 08/22/17 19:45 D-Dimer 0.49 ug/mLFEU (0.00-0.50) 08/22/17 19:45 Sodium 141 mEq/L (135-145) 08/22/17 19:45 Potassium 4.5 mEq/L (3.5-5.2) 08/22/17 19:45 Chloride 98 mEq/L (97-110) 08/22/17 19:45 Carbon Dioxide 28 mEq/l (22-31) 08/22/17 19:45 Anion Gap 15 mEq/L (8-16) 08/22/17 19:45 BUN 15 mg/dL (7-23) 08/22/17 19:45 Creatinine 0.8 mg/dL (0.6-1.0) 08/22/17 19:45 Estimated GFR > 60 08/22/17 19:45 Glucose 100 mg/dL (70-100) 08/22/17 19:45 Calcium 9.0 mg/dL (8.5-10.4) 08/22/17 19:45 Troponin I 0.017 ng/mL (0.000-0.034) 08/22/17 19:45 Imaging Review: Imaging Impressions Extremity Venous Study 08/22/17 19:52 Impression: 1. Right groin hematoma versus near total thrombosis of pseudoaneurysm. Flash of blood flow along the posterolateral margin may represent a tiny feeding neck with atypical blood flow versus merely a collateral vessel emanating off the deep femoral artery. Recommend follow-up right groin ultrasound in 1 to 2 days. 2. No deep venous thrombosis or Garcia's cyst. Findings discussed with Emergency Department physician, Andrade Gan M.D., on August 22, 2017 at 2125. Assessment & Plan Assessment: 77 yo F w/ CAD, AF, HTN, and hypothyroid presents with R groin pain and found to have R groin hematoma vs. pseudoaneurysm in setting of cath in July. Plan: 1. Right groin hematoma vs. pseudoaneurysm - Neurovascularly intact currently without significant blood loss noting Hgb increased from prior. Patient is hemodynamically stable with only mild to moderate pain. - Hold Apixaban, continue DAPT - Q2h pulse and groin checks - Monitor CBC - Repeat ultrasound ordered for the morning - Cardiology service consulted, appreciate assistance 2. Hx CAD - With multiple stents placed in 2002 and most recently in July of 2017. She takes DAPT, BB, and statin. DAPT should be continued noting recent MERLINE placement. 3. HTN - Controlled with metoprolol and ramipril. 4. Hx AF - On metoprolol and Apixaban. Will hold Apixaban noting above. 5. Hypothyroid - On LTX. Diet - Regular Code - Full Ppx - SCDs Dispo - Admit to observation status
[2017-08-23 06:12] LABS: PLATELET COUNT 442 10^3/uL (150-400)
[2017-08-23] MEDS ORDERED: METOPROLOL TARTRATE 50 MG TAB PO SCH (10:30)
--- NOTE | 2017-08-23 11:45 | HOSPPROG ---
Hospitalist Progress Note Assessment/Plan: 77 yo F w/ CAD, AF, HTN, and hypothyroid presents with R groin pain and found to have R groin hematoma vs. pseudoaneurysm in setting of cath in July. First encounter, chart reviewed. D/W Dr Robertson and Dr Fernando. Plan: 1. Right groin hematoma vs. pseudoaneurysm - - Patient is hemodynamically stable with only mild to moderate pain. - Hold Apixaban, continue DAPT - Q2h pulse and groin checks - Monitor CBC - Repeat ultrasound shows increased bleeding - Cardiology service consulted, D/W Dr Fernando - plan for IR procedure today 2. Hx CAD - - With multiple stents placed in 2002 and most recently in July of 2017. -She takes DAPT, BB, and statin. -DAPT should be continued noting recent MERLINE placement. 3. HTN - - Controlled with metoprolol and ramipril. - cont home meds 4. Hx AF - - On metoprolol and Apixaban. Will hold Apixaban noting above. 5. Hypothyroid - - On LTX. Diet - Regular Code - Full Ppx - SCDs Dispo - change to inpt status Subjective: Less pain. Feeling a bit better. Objective: Vital Signs Temp Pulse Resp BP Pulse Ox 36.9 C 84 18 112/63 93 08/23/17 10:35 08/23/17 10:35 08/23/17 10:35 08/23/17 10:35 08/23/17 10:35 Laboratory Results 08/23/17 05:51 08/23/17 05:51 PT 16.9 SEC (12.0-15.0) H 08/22/17 19:45 INR 1.40 (0.83-1.16) H 08/22/17 19:45 - Physical Exam Constitutional: appears nourished, obese, uncomfortable Eyes: PERRL, anicteric sclera, EOMI Ears, Nose, Mouth, Throat: moist mucous membranes, hearing normal, ears appear normal Cardiovascular: regular rate and rhythym, No JVD, No edema Respiratory: no respiratory distress, no rales or rhonchi, reduced air movement Gastrointestinal: normoactive bowel sounds, No tenderness, No ascites Skin: warm, normal color, No erythema Musculoskeletal: normal joint ROM, no joint effusions, generalized weakness Neurologic: AAOx3 Psychiatric: interacting appropriately, not anxious, not encephalopathic, thought process linear ICD10 Worksheet Patient Problems: Problems Problem Status Onset Arthritis of knee Active Appendicitis Acute Pseudoaneurysm of right femoral artery Acute Groin hematoma Acute
[2017-08-23] MEDS: RAMIPRIL 5 MG CAP PO SCH (11:49)
[2017-08-23] MEDS: LEVOTHYROXINE 50 MCG TAB PO SCH (11:58)
[2017-08-23] MEDS: FUROSEMIDE 20 MG TAB PO SCH (12:01)
--- NOTE | 2017-08-23 12:46 | PDMN ---
Medical Necessity Medical necessity: further eval and tx needed for R groin hematoma Vs pseudoaneurysm -> 2 midnights: IR procedure pending, cardio consult, repeat U/ S shows increased bleeding
[2017-08-23] MEDS ORDERED: fentaNYL 100 MCG/2 ML INJ IVP PRN (12:58)
[2017-08-23] MEDS ORDERED: NALOXONE HCL 0.4 MG/ML INJ IVP PRN (12:58)
[2017-08-23] MEDS ORDERED: FLUMAZENIL 0.5 MG/5 ML MDV IVP PRN (12:58)
[2017-08-23] MEDS ORDERED: MEPERIDINE 25 MG/ML SYR IVP PRN (12:58)
[2017-08-23] MEDS ORDERED: MIDAZOLAM 2 MG/2 ML VIAL IVP PRN (12:58)
[2017-08-23] MEDS ORDERED: NS 1,000 ML IV SCH (13:00)
[2017-08-23] MEDS ORDERED: fentaNYL 100 MCG/2 ML INJ ONE (13:02)
[2017-08-23] MEDS ORDERED: IOPAMIDOL (ISOVUE-300) 100 ML BTL ONE (13:47)
--- NOTE | 2017-08-23 14:00 | PDPROPOC ---
Sedation Plan of Care ASA Classification: ASA 3 Planned drugs: fentanyl Mallampati Score: Class 2 (fentanyl only since patient is not NPO long enough for sedation) Mallampati Reference Image:
--- NOTE | 2017-08-23 14:12 | PDGENHP ---
History & Physical Chief Complaint: RLE hematoma History of Present Illness: S/p cardiac cath 1 month ago. Increasing RT medial thigh hematoma seen by US. Need to r/o active bleeding from arterial source. Pertinent Past, Social, Family History: n/a Relevant Physical Exam: RT leg medial hematoma can be palpated, and is painful on palpation. Minimal visible bruising. Cardiorespiratory Assessment: Stable and alert. Lungs clear. RRR.
--- NOTE | 2017-08-23 14:15 | PDRADPN ---
Radiology Procedure Note Date of Procedure: 08/23/17 Radiologist: Kelli Herman Anesthesia: Other (Specify) (lidocaine and fentanyl) Pre-op Diagnosis: RT leg hematoma Post-op Diagnosis: same Indication: enlarging hematoma Procedure: RLE angiogram Finding(s): No active extravesation. Suspect bleeding from anticoagulation. Inf/Abcess present in the surg proc area at time of surgery?: No Complications: None
--- NOTE | 2017-08-23 16:40 | ASMTCMCOM ---
CM Note CM Note Notes: Pt went to get stent today, may need other procedures. DC needs unclear, CM w/f Date Signed: 08/23/2017 04:39 PM Electronically Signed By:Jahaira Grimm RN
[2017-08-23] MEDS ORDERED: LR 500 ML IV SCH (21:00)
[2017-08-24] MEDS: FUROSEMIDE 20 MG TAB PO SCH (10:08)
[2017-08-24] MEDS: ATORVASTATIN CALCIUM 20 MG TAB PO SCH (10:08)
--- NOTE | 2017-08-24 10:12 | HOSPPROG ---
Hospitalist Progress Note Assessment/Plan: 77 yo F w/ CAD, AF, HTN, and hypothyroid presents with R groin pain and found to have R groin hematoma vs. pseudoaneurysm in setting of cath in July. First encounter, chart reviewed. * right groin medial thigh hematoma -status post angiogram which showed no active extravasation , -suspect the bleeding is from anticoagulation -cardiology is to see, previous provider discussed her care with Dr. Fernando ( I also spoke w cardiology today, they will see her) -Hold Apixaban * anemia due to the above * history of coronary artery disease with recent stent placement in July 2017 -dual anti-platelet therapy continued * hypertension -parameters placed on when to hold blood pressure medication -blood pressure has been on the low end of normal -will hold diuretic since she is not eating or drinking much * history of atrial fibrillation -on beta-khoa,Apixaban held * hypothyroidism -Synthroid *plan: Spoke with Cardiology, they will see the patient today. Would ask them to advise in regards to patient's Eliquis and Plavix. The hematoma enlarged in size yesterday afternoon. Patient and daughter very concerned. Also patient is back in atrial fibrillation. Will get a doppler to f/u to be sure hematoma is not enlarging, daughter is very concerned. Asked nursing staff to place ice prn on the right groin Subjective: Avani has no c/o pain in her groin area. Objective: Vital Signs Temp Pulse Resp BP Pulse Ox 36.7 C 84 16 116/71 97 08/24/17 07:44 08/24/17 07:44 08/24/17 07:44 08/24/17 07:44 08/24/17 07:44 Laboratory Results 08/23/17 20:52 08/23/17 08/24/17 08/25/17 05:59 05:59 05:59 Intake Total 250 Output Total 300 Balance -50 PT 16.9 SEC (12.0-15.0) H 08/22/17 19:45 INR 1.40 (0.83-1.16) H 08/22/17 19:45 - Physical Exam Constitutional: no apparent distress, appears nourished, obese Eyes: PERRL Ears, Nose, Mouth, Throat: hearing normal Cardiovascular: irregularly irregular, other (1 +dp,pt pulse in right foot) Respiratory: no respiratory distress Gastrointestinal: normoactive bowel sounds Skin: warm, other (right groin hematoma approximately 3 inches in length palpated) Musculoskeletal: no muscle tenderness Neurologic: AAOx3 Psychiatric: interacting appropriately, not anxious ICD10 Worksheet Patient Problems: Problems Problem Status Onset Groin hematoma Acute Pseudoaneurysm of right femoral artery Acute Arthritis of knee Active Appendicitis Acute
[2017-08-24] MEDS: RAMIPRIL 5 MG CAP PO SCH (10:13)
[2017-08-24] MEDS: LEVOTHYROXINE 50 MCG TAB PO SCH (10:54)
[2017-08-24] MEDS: CLOPIDOGREL BISULFATE 75 MG TAB PO SCH ×2 (11:03→17:05)
--- NOTE | 2017-08-24 14:05 | PDCONSULT ---
Guide Rail Cleaner Note: Patient is a 77 y/o female with history of CAD s/p PCI in the remote past and again recently in July 2017, who presented to [facility] with complaints of groin pain consistent with haematoma (from procedure about three weeks ago). Work up with ultrasound revealed haematoma with question of pseudoaneurysm. The following day, a repeat ultrasound revealed progressive enlargement of the haematoma, and Interventional Radiology was consulted. Dr. Walter Herman took the patient to the IR lab in hopes of identifying the location of the lesion, but no retroperitoneal bleed was noted, no AV fistula, and no pseudoaneurysm was appreciated. The direction of the diagnosis at this point is more in the realm of spontaneous bleed with concerns about a small muscular branch. As of today, all anticoagulation has been held (ASA, Plavix, and Effient), which is of concern given the recently stented LAD. There is an ultrasound pending for today to determine if there continues to be growth of the haematoma. Recommendations, should there be growth, would be for vascular surgery consult to assess the lesion for possible drainage and more aggressive exploration of the right groin. The daughter was not present in the room today with the patient, but she was present earlier in the day.
[2017-08-24] MEDS: METOPROLOL TARTRATE 25 MG TAB PO SCH (20:42)
[2017-08-25] MEDS: LEVOTHYROXINE 50 MCG TAB PO SCH (05:13)
[2017-08-25] MEDS: RAMIPRIL 5 MG CAP PO SCH (08:46)
[2017-08-25] MEDS: CLOPIDOGREL BISULFATE 75 MG TAB PO SCH (08:47)
[2017-08-25] MEDS: METOPROLOL TARTRATE 25 MG TAB PO SCH (08:48)
[2017-08-25] MEDS: ATORVASTATIN CALCIUM 20 MG TAB PO SCH (08:48)
[2017-08-25] MEDS: FUROSEMIDE 20 MG TAB PO SCH (08:49)
[2017-08-25 10:54] VITALS: BP 122/67; PULSE 86; RESP 23; TEMP 97.5
--- NOTE | 2017-08-25 11:15 | HOSPPROG ---
Hospitalist Progress Note Assessment/Plan: 77 yo F w/ CAD, AF, HTN, and hypothyroid presents with R groin pain and found to have R groin hematoma vs. pseudoaneurysm in setting of cath in July. * right groin medial thigh hematoma -status post angiogram which showed no active extravasation , -suspect the bleeding is from anticoagulation -appreciate Cardiology seeing her -repeat ultrasound yesterday afternoon showed no increase in size of the hematoma -Hold Apixaban * acute blood loss anemia due to the above * history of coronary artery disease with recent stent placement in July 2017 - anti-platelet therapy continued/on Plavix only not on aspirin * hypertension -parameters placed on when to hold blood pressure medication -blood pressure has been on the low end of normal -will hold diuretic since she is not eating or drinking much * history of atrial fibrillation/chronic atrial fibrillation -on beta-khoa,Apixaban held -have cut her beta-khoa dose in half, blood pressure has remained stable with this and heart rate is stable * hypothyroidism -Synthroid *plan: Discharge home with close follow-up with Cardiology and with her primary care provider Subjective: Need is feeling much better today Objective: Vital Signs Temp Pulse Resp BP Pulse Ox 36.4 C 86 23 H 122/67 H 95 08/25/17 10:53 08/25/17 10:53 08/25/17 10:53 08/25/17 10:53 08/25/17 10:53 Laboratory Results 08/25/17 05:15 08/24/17 08/25/17 08/26/17 05:59 05:59 05:59 Intake Total 250 725 Output Total 300 Balance -50 725 PT 16.9 SEC (12.0-15.0) H 08/22/17 19:45 INR 1.40 (0.83-1.16) H 08/22/17 19:45 - Physical Exam Constitutional: appears nourished, obese Eyes: PERRL Ears, Nose, Mouth, Throat: hearing normal Cardiovascular: irregularly irregular, other (1+dp/pt pulse) Respiratory: no respiratory distress Skin: warm Musculoskeletal: generalized weakness Neurologic: AAOx3 Psychiatric: interacting appropriately ICD10 Worksheet Patient Problems: Problems Problem Status Onset Groin hematoma Acute Pseudoaneurysm of right femoral artery Acute Arthritis of knee Active Appendicitis Acute
[2017-08-25 11:28] VITALS: O2SAT 97
--- NOTE | 2017-08-25 11:34 | PDIAF ---
- Diagnosis Diagnosis: right groin hematoma, abla Code Status: Full Code - Medication Management Discharge Medications: Medications to Continue on Transfer Atorvastatin Calcium [Lipitor 20 mg (*)] 20 mg PO DAILY 11/08/12 [Last Taken 05/01] Ramipril [Altace 5mg (*)] 10 mg PO DAILY 11/08/12 [Last Taken 08/22/17] Levothyroxine [Synthroid 50 mcg (*)] 50 mcg PO DAILY06 07/31/17 [Last Taken 05/01] Clopidogrel Bisulfate [Plavix (*)] 75 mg PO DAILY 90 Days tab 08/01/17 [Last Taken 08/22/17] Furosemide [Lasix 20 MG (*)] 20 mg PO DAILY 08/23/17 [Last Taken 08/22/17] Acetaminophen [Tylenol 325mg (*)] 650 mg PO Q4HRS PRN tab 08/25/17 [Last Taken Unknown] Metoprolol Tartrate [Lopressor 50 mg (*)] 25 mg PO BID #0 08/25/17 [Last Taken 08/22/17 09:00] Discharge Medications: Refer to the Discharge Home Medication list for PRN reason. - Orders Services needed: Home Care, Registered Nurse, Physical Therapy Home Care Face to Face: I certify that this patient was under my care and that I had the required [id number] encounter meeting the encounter requirements on the discharge day. My findings support the fact that the patient is homebound as defined in Home Care Face to Face Continued: CMS Chapter 7 Medicare Benefits Manual 30.1.1 , The condition of the patient is such that there exists a normal inability to leave home and consequently, leaving home would require a considerable and taxing effort. Isolation Type: None Diet Recommendation: no restrictions on diet Diet Texture: Regular Texture Diet - Labs/Radiology HCT/HGB Date: 08/26/17 (q 3days) Call or Fax Lab and Imaging Results to: call labs to Dr Rivas please - Follow Up Care Current Providers and Referrals: Gaby Rivas MD [Primary Care Provider] - As per Instructions
--- NOTE | 2017-08-25 13:53 | GDS ---
[f rep st] DISCHARGE SUMMARY DISCHARGE DIAGNOSES: 1. Right groin hematoma. 2. Acute blood loss anemia due to this. 3. History of coronary artery disease, with stent placement in July of 2017. 4. Hypertension. 5. Chronic atrial fibrillation. 6. Hypothyroidism. CONSULTATION: Jack Fernando MD BRIEF HISTORY: The patient is a 77-year-old female with a history of coronary artery disease, atrial fibrillation, hypertension, who presented with right groin pain, and found to have a right groin hematoma versus pseudoaneurysm in the setting of a heart catheterization in July. She was seen by Dr. Herman and had an angiography performed. She evaluated the right groin. It showed no active arterial branch extravasation for the proximal SFA or profunda branches. She suspected that the enlarging thigh hematoma comes from systemic anticoagulation. The patient had a repeat ultrasound performed yesterday, which did not show that the hematoma was enlarging. In addition, she was seen and evaluated by the income tax investigator, because she will be stopping her Eliquis. His recommendation was if her hematoma was not enlarging to continue the Plavix. The patient has improved. She will further follow up with Dr. Rivas and with Cardiology. HOSPITAL COURSE PER PROBLEM: 1. Right groin hematoma. This has been stable. I have recommended that she use ice several times a day. Will hold her Eliquis in the setting of bleeding. It is likely that was the cause of the bleeding. 2. Acute blood loss anemia. Hemoglobin and hematocrit have been stable. Will have this checked tomorrow and in the next few days, and monitored closely. 3. History of coronary artery disease, with recent stent placement in July. Resumed her Plavix. She has been stable. 4. Hypertension. She had some episodes of hypotension. I have cut her Lopressor in half and recommended she stay on this dose until she further follows with Cardiology. 5. Chronic atrial fibrillation. She is rate controlled with the lower dose of her beta-khoa. In addition, her anticoagulation has been placed on hold due to the above. 6. Hypothyroidism, on Synthroid. DISCHARGE CONDITION: Stable. Blood pressure is 122/67, heart rate is 86, respiratory rate is 20, O2 saturation on 2 L 97%, temperature is 36.4 Celsius. MEDICATIONS AT DISCHARGE: Please see the EMR. DISCHARGE INSTRUCTIONS: 1. Stop the Eliquis. 2. Ice her groin 3 to 5 times a day for 10-minute intervals. 3. Take half her dose of metoprolol. 4. Do not take aspirin or any type of NSAIDs. 5. If her pain becomes worse in the right groin area, to come to the emergency room. 6. Do not take her lisinopril if her systolic blood pressure is less than 110. 7. She will have home care followup, and check labs over the next several days. TIME SPENT: Greater than 30 minutes discharging and coordinating the patient's care and updating the patient's daughter. /[id number]/MODL MTDD
--- NOTE | 2017-08-25 15:13 | PDCONSULT ---
Senior Interactive Producer Note: Cardiology saw the patient again today, and spoke with the daughter. Ultrasound of the right groin today with stable haematoma noted. Icing and mobilization have led to improvement in symptoms for the patient. Patient was resumed on Plavix therapy yesterday given concerns about relatively recent PCI in late 2017. Eliquis therapy with continued hold. Cardiology with recommendations for patient to be seen in 7-10 days by cardiology for reassessment of the groin, and further discussion about resumption of Eliquis therapy. Patient and daughter were in agreement with these plans. Patient to be discharged to home today.
--- NOTE | 2017-08-25 17:39 | ASDISCHSUM ---
Discharge Information Plan Status:Home with Home Health Medically Cleared to Leave: Discharge Date:08/25/2017 01:08 PM D/C Disposition:Home Health Service ADT D/C Disposition:Home, Routine, Self-Care Projected Discharge Date:08/25/2017 11:00 AM Transportation at D/C: Discharge Delay Reason: Follow-Up Date:08/25/2017 11:00 AM Discharge Slot: Final Diagnosis: Placement Information Referral Type:*Home Health Care Services Referral ID:[id number] Provider Name:[facility] Address 1:[address] [place] [address] Address 2: City:[place] Selection Factors: State:[place] Patient Contact Information Contact Name:MELVA Relationship: Address:[address] [place] [address] [address] [place] Alternate Phone: State/Zip Code:[place] [address] Email: Financial Information Financial Class: Primary Plan Desc:MEDICARE INPATIENT Primary Plan Number:[id number] Secondary Plan Desc:[facility] Secondary Plan Number:[id number] Assessment Information [facility] CM Progress Note CM Note CM Note Notes: Pt went to get stent today, may need other procedures. DC needs unclear, JOSLYN w/f Date Signed: 08/23/2017 04:39 PM Electronically Signed By:Jahaira Grimm RN Case Management Discharge Plan Note Case Management Discharge Discharge Order Complete? Answers: Yes Patient to Obtain Answers: Independently Medications Transportation Arranged Answers: Family/Friends Faxed Final Orders Answers: Yes Family Notified Answers: Yes Discharge Comments Notes: Nahid/w RN, final orders faxed, Bhavani at [facility] notified, RN to call report. Intervention Information Intervention Type:*Incorrect Registration Date of Service:08/23/2017 09:13 AM Patient Type:Inpatient Staff Member:SANAZ Fernandez, Julia Hours: Discipline: Severity: Comment:
== END 2017-08-25 13:08 | disposition home health service (06) | DRG 813 ==
LOC: CED 19:18 → CEDHOLD 21:58 → INTOOBSV 21:58 → F3E 23:39 → OBSVTOIN 08-23 12:15
PROVIDERS: ADMIT Internal Medicine; ATTEND Internal Medicine
PROC: B41FYZZ Fluoroscopy of Right Lower Extremity Arteries using Other Contrast (ICD-10-PCS; principal; 2017-08-23)
DX: D68.32 Hemorrhagic disorder due to extrinsic circulating anticoagulants (principal); D62 Acute posthemorrhagic anemia; M79.81 Nontraumatic hematoma of soft tissue; I25.10 Atherosclerotic heart disease of native coronary artery without angina pectoris; I10 Essential (primary) hypertension; I48.2 Chronic atrial fibrillation; E03.9 Hypothyroidism, unspecified; T45.515A Adverse effect of anticoagulants, initial encounter; Z95.5 Presence of coronary angioplasty implant and graft; E78.5 Hyperlipidemia, unspecified; I25.2 Old myocardial infarction
CPT/HCPCS: 80048-PO; 84484-PO; 85025-PO; 85378-PO; 85610-PO; 85730-PO; 93971-PO; 96374; C1769; C1894; G0378; J1644; J2405; J3010; Q9967

== ENCOUNTER → 2018-04-30 | Outpatient (CLI) | payer BC | LOC: CIMAGING 15:46 | PROVIDERS: ATTEND Internal Medicine Pulmonary Disease | DX: J90 Pleural effusion, not elsewhere classified (principal) | CPT/HCPCS: 71046-PO ==

== ENCOUNTER → 2018-08-16 | Outpatient (CLI) | payer BC | LOC: FIMAGING 15:22 | PROVIDERS: ATTEND Internal Medicine | DX: Z12.31 Encounter for screening mammogram for malignant neoplasm of breast (principal); Z80.3 Family history of malignant neoplasm of breast; Z99.2 Dependence on renal dialysis ==

== ENCOUNTER → 2018-08-31 | Outpatient (CLI) | payer BC | LOC: FIMAGING 09:07 | PROVIDERS: ATTEND Internal Medicine | DX: R92.8 Other abnormal and inconclusive findings on diagnostic imaging of breast (principal) ==

== ENCOUNTER 2018-12-11 01:20 | Observation (INO) | payer BC ==
[2018-12-11] MEDS ORDERED: ASPIRIN 81 MG CHEWABLE TAB PO ONE (01:38)
[2018-12-11] MEDS ORDERED: NITROGLYCERIN 2% 1 GM PACKET TP ONE (01:40)
[2018-12-11] MEDS ORDERED: NITROGLYCERIN 0.4 MG BTL SL ONE (01:40)
[2018-12-11] MEDS ORDERED: DILTIAZEM HCL/D5W 125 ML IV ONE (02:02)
[2018-12-11] MEDS ORDERED: ENOXAPARIN 80 MG/0.8 ML SYR SC ONE (02:03)
[2018-12-11] MEDS ORDERED: DILTIAZEM 25 MG/5 ML VIAL IVP ONE (02:05)
[2018-12-11] MEDS ORDERED: DILTIAZEM 125 MG/25 ML VIAL IV ONE (02:44)
[2018-12-11] MEDS ORDERED: DILTIAZEM 125 MG in NS 100 ML IV ONE (03:00)
[2018-12-11] MEDS ORDERED: ACETAMINOPHEN 325 MG TAB PO PRN (03:40)
[2018-12-11] MEDS ORDERED: ONDANSETRON DISINTEGRATING 4 MG TAB PO PRN (03:40)
[2018-12-11] MEDS ORDERED: HYDROCODONE/APAP 5/325 TAB PO PRN (03:40)
[2018-12-11] MEDS ORDERED: ONDANSETRON 4 MG/2 ML VIAL IVP PRN (03:40)
[2018-12-11] MEDS ORDERED: NITROGLYCERIN 0.4 MG BTL SL PRN (03:42)
[2018-12-11] MEDS ORDERED: DILTIAZEM HCL/D5W 125 ML IV SCH (07:30)
[2018-12-11] MEDS ORDERED: POTASSIUM CL 20 MEQ TAB PO ONE (10:20)
[2018-12-11] MEDS ORDERED: REGADENOSON 0.4 MG/5 ML SYR IVP ONE (11:02)
[2018-12-11] MEDS: CLOPIDOGREL BISULFATE 75 MG TAB PO SCH (12:37)
[2018-12-11] MEDS: METOPROLOL TARTRATE 50 MG TAB PO SCH ×2 (12:38→20:18)
[2018-12-11] MEDS ORDERED: FUROSEMIDE 20 MG/2 ML VIAL IVP ONE ×2 (15:08→18:23)
[2018-12-11] MEDS ORDERED: FUROSEMIDE 20 MG/2 ML VIAL ONE (15:12)
[2018-12-11] MEDS ORDERED: ENOXAPARIN 100 MG/ML SYR SC ONE (21:00)
[2018-12-12] MEDS ORDERED: FUROSEMIDE 20 MG TAB PO SCH (09:00)
[2018-12-12] MEDS: RAMIPRIL 5 MG CAP PO SCH (09:02)
[2018-12-12] MEDS: ATORVASTATIN CALCIUM 20 MG TAB PO SCH (09:02)
[2018-12-12] MEDS: METOPROLOL TARTRATE 50 MG TAB PO SCH ×2 (09:03→20:41)
[2018-12-12] MEDS: CLOPIDOGREL BISULFATE 75 MG TAB PO SCH (09:03)
[2018-12-12] MEDS ORDERED: FUROSEMIDE 40 MG/4 ML VIAL IVP ONE ×2 (09:45→15:00)
[2018-12-12] MEDS: APIXABAN 5 MG TAB PO SCH ×2 (10:48→20:41)
[2018-12-13] MEDS ORDERED: NS 1,000 ML IV ONE (06:00)
[2018-12-13] MEDS ORDERED: ATROPINE SULFATE 1 MG/10 ML SYR ONE (07:30)
[2018-12-13] MEDS ORDERED: ONDANSETRON 4 MG/2 ML VIAL IVP PRN (07:38)
[2018-12-13] MEDS ORDERED: fentaNYL 100 MCG/2 ML INJ IVP PRN (07:38)
[2018-12-13] MEDS ORDERED: NALOXONE HCL 0.4 MG/ML INJ IVP PRN (07:38)
[2018-12-13] MEDS ORDERED: PROPOFOL 200 MG/20 ML VIAL ONE (07:49)
[2018-12-13] MEDS ORDERED: FUROSEMIDE 40 MG TAB PO SCH (10:00)
[2018-12-13] MEDS: APIXABAN 5 MG TAB PO SCH (10:30)
[2018-12-13] MEDS: ATORVASTATIN CALCIUM 20 MG TAB PO SCH (10:30)
[2018-12-13] MEDS: RAMIPRIL 5 MG CAP PO SCH (10:30)
[2018-12-13] MEDS: CLOPIDOGREL BISULFATE 75 MG TAB PO SCH (10:31)
[2018-12-13] MEDS: METOPROLOL TARTRATE 50 MG TAB PO SCH (10:31)
== END 2018-12-13 13:15 | disposition home or self-care (01) ==
DX: R07.9 Chest pain, unspecified (principal); I25.10 Atherosclerotic heart disease of native coronary artery without angina pectoris; I48.2 Chronic atrial fibrillation; I34.0 Nonrheumatic mitral (valve) insufficiency; J45.909 Unspecified asthma, uncomplicated; I11.0 Hypertensive heart disease with heart failure; E03.9 Hypothyroidism, unspecified; E78.5 Hyperlipidemia, unspecified; I50.30 Unspecified diastolic (congestive) heart failure; D64.9 Anemia, unspecified; D47.3 Essential (hemorrhagic) thrombocythemia; Z79.01 Long term (current) use of anticoagulants; Z95.5 Presence of coronary angioplasty implant and graft
CPT/HCPCS: 71045; 78452; 93005; 93017; 93306; 93312; 96361; 96372; 96374; 99285; A9500; G0378